=== PATIENT | female | born 2000 | race Caucasian/White ===

== ENCOUNTER 2023-08-09 16:21 | Emergency (ER) | payer BC, SELFPAY ==
[2023-08-09 16:23] VITALS: BP 151/98
--- NOTE | 2023-08-09 16:32 | ED.GENMED ---
History of Present Illness
General
Chief Complaint: Abdominal Pain
Time Seen by Provider: 08/09/23 16:31
Travel History
Have you had any contact with someone who has COVID-19?: No
Do you have any symptoms of coronavirus? Fever > 100 degrees, chills, cough, shortness of breath, sore throat, loss of taste or smell, muscle aches, or headache?: No
History of Present Illness
History of Present Illness:
HPI: Patient presents with upper abdominal pain associate with nausea. She has not vomited. This has been intermittently occurring over the past 3 days. She has not seen a GI doctor. She has had no stool changes. She also reports some vague
discomfort in the lower abdomen that she relates more towards menstrual type of cramping. She has an IUD. The main reason why she is here is primarily because of the upper abdominal pain. It is equally on the right and left but possibly more on
the right.
EXAM:
GENERAL: Well appearing in no distress
HEENT: Moist oral mucosa
CARDIOVASCULAR: No murmurs, normal heart rate, regular rhythm, No chest wall tenderness
PULMONARY: No respiratory distress, breath sounds are clear and equal
ABDOMEN: Soft with no peritoneal signs, minimal upper abdominal and suprapubic tenderness
NEUROLOGIC: Excellent strength all extremities, no coordination deficits
PSYCHIATRIC: Appropriate mental status, normal insight and judgement
EXTREMITIES: Nontender, no edema, moves all extremities equally
SKIN: No rash, no lesions
TIME OF INITIAL ENCOUNTER: 4:50 PM
NUMBER AND COMPLEXITY OF PROBLEMS ADDRESSED AT THE ENCOUNTER
� Chronic conditions affecting care: Denies any significant past medical history
� Acute Exacerbation and/or Progression of Chronic Illness: This is an acute problem
� Differential Diagnosis includes: Biliary colic, cholecystitis, pancreatitis very unlikely, gynecologic source is unlikely given the primary concern of upper pain
AMOUNT AND/OR COMPLEXITY OF DATA TO BE REVIEWED AND ANALYZED
� I performed an independent evaluation of and my interpretation is:
EKG:
CT:
X-rays:
Laboratory Studies: White count is 5.1, chemistries are normal, hCG and lipase are normal, no clear evidence for infection on urinalysis
Other: Ultrasound imaging unremarkable of the upper abdomen
� Review of other/old records: No old records available for review in [facility]
� Clinical information was obtained by an independent historian: I spoke to father at bedside
� Prescriptions/Medications Considered but not given:
� Further testing considered but not performed:
RISK OF COMPLICATIONS AND/OR MORBIDITY OR MORTALITY OF PATIENT MANAGEMENT
� Social determinants of health affecting care: Lives at home
� Discussion with other providers:
� Escalation of care including admission/observation vs risk of discharge considered: The patient appears fairly comfortable. Ultrasound and labs are unremarkable. On reassessment at 6:30 PM, she appears comfortable. I did
suggest trying a 2-week course of an [id number]-qwi-[id number] PPI such as omeprazole. I also encouraged GI follow-up.
Phy Exam
Physical Exam
Physical Exam:
See HPI
Course
Orders/Labs/Results
Orders:
Orders
08/09/23 16:53
Test Result ONCE
US Abdomen Complete/Upper Urgent
Comment:
Reason For Exam: upper pain
08/09/23 17:10
Complete Blood Count/With Diff Urgent
Comprehensive Metabolic Panel Urgent
HCG, Serum Qualitative Screen Urgent
Lipase Urgent
Urinalysis Reflex To Culture Urgent
Date Specimen was Collected: 08/09/23
Time Specimen was Collected: 17:06
Urine Microscopic Reflex Cult Urgent
Urine Culture Urgent
CRISTA Source: U
Specimen Description:
Date Specimen was Collected: 08/09/23
Time Specimen was Collected: 17:06
Abnormal Lab Results
08/09/23
17:10
MCH 31.8 H pg
(27.0-31.0)
MPV 12.4 H fL
(7.4-10.4)
Urine Ketones 1+ A
(Negative)
Leukocyte Esterase Rfl Trace A
(Negative)
Urine RBC 3-6 A /HPF
(0-2)
Urine Bacteria (Reflex) Moderate A
(Negative)
08/09/23 17:10
08/09/23 17:10
Vital Signs
Initial and Last Documented VS:
Initial Vital Signs
Temp Pulse Resp BP Pulse Ox
99.1 F 85 18 151/98 99
08/09/23 16:23 08/09/23 16:23 08/09/23 16:23 08/09/23 16:23 08/09/23 16:23
Last Documented Vital Signs
Temp Pulse Resp BP Pulse Ox
99.1 F 85 18 151/98 99
08/09/23 16:23 08/09/23 16:23 08/09/23 16:23 08/09/23 16:23 08/09/23 16:23
*Critical Care Note
Total Time (30-74mins, 75-104mins- exclusive of procedures): Not Applicable
ED Attending Note
-
Portions of this chart may have been created with voice recognition software.� Occasional wrong word or��sound alike� substitutions may have occurred due to the inherent limitations of voice recognition software.
Discharge Plan
Departure
Patient Disposition: Home (Routine Discharge)
Date of Disposition: 08/09/23
Time of Disposition: 18:32
Patient with high blood pressure during this ER visit?: Yes
Discharge Problem:
Acute upper abdominal pain
Instructions: Acid Reflux and GERD in Adults (DC), Abdominal Pain
Referrals:
Cecy Steel MD [Active] - Follow up in 2-3 days
Augustin Talavera MD [Family Provider] -
Activity Restrictions/Additional Instructions:
The cause of your symptoms is unclear. Your white blood cell count is normal; liver, kidney, and other basic labs are normal. Urinalysis does not show any clear sign of infection. hCG testing was negative for . Ultrasound imaging shows
no abnormality of the liver, gallbladder, pancreas, or kidney. I have given you the contact information for local GI doctor. I also recommend that you try a 2-week course of [id number]-[id number] omeprazole. This blocks the production of stomach acid
and this could be a contributing factor for your discomfort.
Interventions
Interventions:
*Risk Screen - Suicide Last Done: 08/09/23 16:23
*General Assessment Last Done: 08/09/23 17:06
*Neglect/Abuse Screening Last Done: 08/09/23 17:06
*ED COVID-19 Vaccine History Last Done: 08/09/23 16:25
JL-Nnsljx-Xwscqruvxi Assessment Last Done: 08/09/23 17:06
Discharge Date and Time
Print Language: JAPANESE
[2023-08-09 17:20] LABS: % Basophils 0.4 % (0-2); % Eosinophils 0.2 % (0-6); % Immature Granulocytes 0.2 % (0-0.5); % Lymphocytes 40.8 % (20.5-51.1); % Monocytes 5.1 % (1.7-9.3); % Neutrophils 53.3 % (42.2-75.2); Absolute Lymphocytes 2.1 10^3/uL (1.2-3.4); Absolute Monocytes 0.3 10^3/uL (0.1-0.6); Absolute Neutrophils 2.7 10^3/uL (1.4-6.5); Hematocrit 39.4 % (37.0-47.0); Mean Corp Hgb Conc. 35.5 g/dL (33.0-37.0); Mean Corpuscular Hgb 31.8 pg (27.0-31.0); Mean Corpuscular Volume 89.5 fL (81.0-99.0); Mean Platelet Volume 12.4 fL (7.4-10.4); Nucleated Red Blood Cells % 0 %; Platelet Count 136 10^3/uL (130-400); Red Cell Dist. Width 12.1 % (11.5-14.5); White Blood Cell Count 5.1 10^3/uL (4.8-10.8)
[2023-08-09 17:28] LABS: Urine Albumin Negative (Neg - Trace); Urine Bilirubin Negative (Negative); Urine Character Clear (Clear); Urine Color Straw; Urine Glucose Negative (Negative); Urine Ketone 1+ (Negative); Urine Leukocyte Trace (Negative); Urine Nitrite Negative (Negative); Urine Occult Blood Negative (Negative); Urine Urobilinogen Negative (Neg - 1+)
[2023-08-09 17:33] LABS: HCG, Serum Qualitative Screen Negative
[2023-08-09 17:38] LABS: ALT (SGPT) 20 U/L (0-35); AST (SGOT) 28 U/L (14-36); Alkaline Phosphatase 70 U/L (38-126); Blood Urea Nitrogen 10 mg/dl (7-17); Calcium 9.9 mg/dl (8.4-10.2); Carbon Dioxide 25 mmol/L (22-30); Chloride 102 mmol/L (98-107); Glucose 82 mg/dl (70-99); Lipase 68 U/L (23-300); Potassium 3.7 mmol/L (3.5-5.1); Sodium 138 mmol/L (135-145); Total Bilirubin 0.9 mg/dl (0.2-1.3); Total Protein 7.3 g/dl (6.3-8.2); eGFR > 60.00
[2023-08-09 17:41] LABS: Urine Bacteria Moderate (Negative); Urine Squamous Cell 16-20 /LPF (Few)
== END 2023-08-09 18:49 | disposition home or self-care (01) ==
LOC: EMR 16:21
PROVIDERS: EMERGENCY PHYSICIAN Emergency Medicine; FAMILY PHYSICIAN Family Medicine
DX: R10.10 Upper abdominal pain, unspecified (principal)
CPT/HCPCS: 99284; 76700; 80053; 81003; 81015; 83690; 84703; 85025; 87086